=== PATIENT | male | born 1985 | race Caucasian/White ===

== ENCOUNTER 2023-05-25 17:28 | Emergency (ER) | payer OTHER, SELFPAY ==
[2023-05-25 17:45] VITALS: BP 122/69; PULSE 59; RESP 18; TEMP 37.1; O2SAT 96; BMI 30.9
--- NOTE | 2023-05-25 19:27 | ED_ITS ---
HPI - Ear Problem General Chief complaint: Ear Stated complaint: ears are plugged Time Seen by Provider: 05/25/23 19:27 Source: patient Mode of arrival: Ambulatory History of Present Illness HPI Narrative: Patient is a 37-year-old healthy male who presents today with ongoing left ear pain. It sounds as though he is had pain off and on since November. However over last 2-3 days he feels like it is worse he feels like his ear is swollen it is painful to touch. No fever or chills. He is done lots of ynvc-rlw-wewfaky things nothing seems to help it. His right ear feels a little off as well. But left is definitely worse. He denies any ringing or tinnitus. Related Data Allergies Allergy/AdvReac Type Severity Reaction Status Date / Time No Known Drug Allergies Allergy Verified 05/25/23 17:49 Patient History Social History Smoking Status: Former smoker Smoking Status: Former smoker Exam Initial Vital Signs Initial Vital Signs: Vital Signs Temperature 98.7 F 05/25/23 17:45 Pulse Rate 59 L 05/25/23 17:45 Respiratory Rate 18 05/25/23 17:45 Blood Pressure 122/69 05/25/23 17:45 Pulse Oximetry 96 05/25/23 17:45 Oxygen Delivery Method Room Air 05/25/23 17:45 GENERAL: Well-appearing, well-nourished and in no acute distress. EAR: Right ear normal external ear tympanic membrane Visualized no erythema left ear canal swollen some mild drainage no erythema CARDIOVASCULAR: peripheral pulses in tact, cap refill <2 sec RESPIRATORY: No respiratory distress, speaks in full sentences without difficulty EXTREMITIES: Normal range of motion, no clubbing or edema. Neurovascularly intact NEUROLOGICAL: Cranial nerves II through XII grossly intact. Normal gait and speech. SKIN: Warm, dry, no petechiae, no rashes or lesions. Course Orders Ordered: Discontinued Medications Ciprofloxacin/Dexamethasone (Ciprofloxacin/Dexameth Otic Susp) 4 drops EAR-LEFT NOW ONE Stop: 05/25/23 19:33 Last Admin: 05/25/23 19:48 Dose: 1 box Documented By: AP Vital Signs Vital signs: Vital Signs - 8 hr 05/25/23 17:45 05/25/23 20:00 Temperature 98.7 F 97.4 F L Pulse Rate 59 L 79 Respiratory Rate 18 18 Blood Pressure 122/69 104/67 Pulse Oximetry 96 98 Oxygen Delivery Method Room Air Room Air Medical Decision Making MDM Narrative Medical decision making narrative: Patient 37-year-old male has had some eustachian tube dysfunction for the few months. Over last couple days it is gotten worse. He is put in multiple things in his ear. On exam it does look swollen with a little bit of drainage. Non erythematous most consistent with an otitis externa. Seems reasonable to start on drops. Patient is not septic no oral antibiotics or further workup indicated Discharge Plan Departure Patient Disposition: Home Clinical Impression: Otitis externa Instructions: How to Instill Ear Drops, DI for Otitis Externa Activity Restrictions/Additional Instructions: *You have been diagnosed with otitis externa *What to do: At this time stop all tcax-eak-wnxnans medications *Continue to take medications as directed Ciprodex 4 drops in ear twice a day for 7 days *Follow up with your primary care provider in 2-3 days or call [phone] *Return to ER if you should have increased pain swelling fever, or any new, w orsening or concerning symptoms Referrals: Rigo Coates [Primary Care Provider] - Stand Alone Forms: Patient Portal/API
[2023-05-25] MEDS: CIPROFLOXACIN/DEXAMETH OTIC SUSP 4 DROPS EAR-LEFT (19:48)
[2023-05-25 20:00] VITALS: BP 104/67; PULSE 79; RESP 18; TEMP 36.3; O2SAT 98
== END 2023-05-25 20:03 | disposition home or self-care (01) ==
PROVIDERS: Emergency Provider Emergency Medicine
DX: H60.92 Unspecified otitis externa, left ear (principal)
CPT/HCPCS: 99282; 99283